=== PATIENT | female | born 1945 | race Caucasian/White ===

== ENCOUNTER 2018-12-05 10:54 | Emergency (ER) | payer MEDICARE, BC ==
[2018-12-05 10:54] VITALS: O2SAT 93
[2018-12-05 11:30] LABS: APPEARANCE,URINE Clear; BILIRUBIN,URINE 1+ (NEGATIVE); COLOR,URINE Yellow; GLUCOSE, URINE (UA) NEGATIVE (NEGATIVE); KETONES,URINE NEGATIVE (NEGATIVE); LEUKOCYTE ESTERASE ,URINE NEGATIVE (NEGATIVE); NITRATE,URINE NEGATIVE (NEGATIVE); OCCULT BLOOD,URINE NEGATIVE (NEG-TRACE); UROBILINOGEN,URINE 0.2 (0.2-1.0 EU)
[2018-12-05 11:36] VITALS: BP 127/76; PULSE 77; RESP 20; TEMP 98
[2018-12-05 11:40] LABS: BACTERIA RARE (< 1+); CRYSTALS NEGATIVE (0-3 AVE/HPF); ICTOTEST,URINE NEGATIVE (NEGATIVE); RBC,URINE 0-1 (0-3AV/HPF)
== END 2018-12-05 12:10 | disposition home or self-care (01) | DRG 696 ==
LOC: ED 10:54
DX: R35.0 Frequency of micturition (principal); R30.9 Painful micturition, unspecified; R10.9 Unspecified abdominal pain
CPT/HCPCS: 81001; 99282